=== PATIENT | male | born 1940 | race Caucasian/White ===

== ENCOUNTER 2017-10-05 18:10 | Inpatient (IN) | payer OTHER ==
[~2017-10-05] VITALS: Ht 162.6 cm; Wt 75.8 kg
--- NOTE | 2017-10-05 18:54 | CT SCAN REPORT ---
EXAMINATION: CT HEAD WITHOUT CONTRAST CLINICAL INFORMATION: Weakness. Intracranial hemorrhage/mass?. COMPARISON: None TECHNIQUE: Contiguous axial imaging was performed from the skull base to vertex without intravenous administration of contrast. DLP: 613 mGy-cm FINDINGS: There is no evidence of acute intracranial hemorrhage or territorial infarction. No abnormal mass effect or midline shift is seen. Luna to white matter differentiation is well preserved. No extra-axial fluid collections are identified. The lateral ventricles are enlarged and so are the cortical sulci. There is mild periventricular hypodensity suggestive of chronic small vessel ischemic changes. The osseous structures and soft tissues are normal. The mastoid air cells and visualized portions of the paranasal sinuses are well aerated. IMPRESSION: No acute intracranial process seen. Moderate dilatation of lateral ventricles slightly dys proportionate to cortical sulci. Raising question for NPH. Correlated with clinical exam. Mild chronic small vessel ischemic changes in both cerebral hemispheres.
--- NOTE | 2017-10-05 19:20 | RADIOLOGY REPORT ---
EXAMINATION: PORTABLE CHEST 1 VIEW CLINICAL INFORMATION: Weakness. COMPARISON: 07/02/2013. TECHNIQUE: Portable frontal view of the chest was obtained. FINDINGS: The lungs are well expanded. No focal infiltrate, effusion, edema, or pneumothorax. Cardiac and mediastinal silhouettes are within normal limits for technique. No acute bony abnormality seen. Degenerative changes seen in the shoulders and spine IMPRESSION: No evidence of acute disease.
--- NOTE | 2017-10-05 19:21 | RADIOLOGY REPORT ---
EXAMINATION: XR SHOULDER, LEFT CLINICAL INFORMATION: Left shoulder pain COMPARISON: None TECHNIQUE: 3 plain film views of the left shoulder obtained of the left shoulder. FINDINGS: Ureteral head is well-seated within the glenoid fossa. Degenerative changes are seen more so in the acromioclavicular joint. I do not appreciate any acute fracture or dislocation. Visualized left upper chest unremarkable. IMPRESSION: Mild degenerative changes but no acute bony abnormality.
[2017-10-05 19:55] LABS: ABSOLUTE BASOPHIL COUNT 0 /CUMM (0.0-0.2); ABSOLUTE EOSINOPHIL COUNT 0 /CUMM (0.0-0.7); ABSOLUTE GRANULOCYTE CT 8.3 /CUMM (1.4-6.5); ABSOLUTE LYMPH COUNT 0.5 /CUMM (1.2-3.4); BASOPHIL % 0.1 % (0.0-2.0); EOSINOPHIL % 0 % (0-5); MEAN CORPUSCULAR HGB 29.3 PG (27.0-31.0); MEAN CORPUSCULAR HGB CONC 33.9 G/DL (33.0-37.0); MEAN CORPUSCULAR VOLUME 86.4 FL (80.0-94.0); MEAN PLATELET VOLUME 8.9 FL (7.4-10.4); PLATELET COUNT 182 /CUMM (130-400); RBC DISTRIBUTION WIDTH 13.1 % (11.5-14.5); RED BLOOD CELL CT 4.05 /CUMM (4.70-6.10); WHITE BLOOD CELL COUNT 9.8 /CUMM (4.8-10.8)
[2017-10-05 19:58] LABS: GRANULOCYTE % 84.7 % (42.2-75.2)
--- NOTE | 2017-10-05 21:04 | ED GENERAL ADULT ---
History of Present Illness General Chief Complaint: General Adult Stated Complaint: BIBA FOR WEAKNESS Source: patient Exam Limitations: no limitations Vital Signs & Intake/Output Vital Signs & Intake/Output Vital Signs Date Time Temp Pulse Resp B/P B/P Pulse O2 O2 Flow FiO2 Mean Ox Delivery Rate 10/05 2028 98.3 109 18 179/99 97 Room Air 10/06 1831 98.4 109 18 189/104 95 Room Air Room Air Allergies Coded Allergies: NO KNOWN ALLERGIES (09/10/10) Reconcile Medications Gabapentin 300 MG CAPSULE 1 CAP PO TID NEUROPATHY (Reported) Lisinopril 5 MG TABLET 1 TAB PO DAILY HIGH BLOOD PRESSURE (Reported) Metformin HCl 1,000 MG TABLET 1 TAB PO BID DIABETES (Reported) Pregabalin (Lyrica) 75 MG CAPSULE 1 CAP PO BID NEUROPATHY (Reported) Simvastatin (Simvastatin*) 40 MG TABLET 1 TAB PO QPM HIGH CHOLESTROL ( Reported) Tramadol HCl 50 MG TABLET 1 TAB PO TIDPRN PAIN CONTROL (Reported) Triage Nurses Notes Reviewed? yes Onset: Abrupt Duration: week(s): (1), changing over time, continues in ED, getting worse Timing: recent history Injury Environment: home Severity: mild, moderate Severity Numbers: 6 No Modifying Factors: none Modifying Factors: Worsens With: movement. HPI: 76-year-old male history of hypertension hyperlipidemia diabetes presents for evaluation of difficulty walking, left shoulder pain, confusion, weakness and lethargy. Patient's son reports that over the past several months patient has had a decline in his ability to ambulate. Initially he was walking without difficulty then required a cane and a walker and now is unable to ambulate at all. He feels weak and reports pain in his left shoulder and arm. The pain is worse with movement there is no trauma or triggering event. Is feeling the upper extremity is swollen. No numbness or tingling. No chest pain or shortness of breath. The son also feels that the patient has been more confused recently. No fevers no urinary symptoms no coughing. (Tyler Ruffin) Past History Travel History Traveled to [place] past 21 day No Medical History Any Pertinent Medical History? see below for history History of MRSA: No History of VRE: No History of CDIFF: No Pneumonia Vaccine: 02/07/09 Surgical History Surgical History: non-contributory Psychosocial History Who do you live with Spouse Services at Home None What is your primary language Luxembourgish Family History Family History, If Any: Relation not specified for: No family history of disorders Hx Contributory? No (Tyler Ruffin) Review of Systems Review of Systems Constitutional: Reports: malaise, weakness. EENTM: Reports: no symptoms. Respiratory: Reports: no symptoms. Cardiovascular: Reports: no symptoms. GI: Reports: no symptoms. Genitourinary: Reports: no symptoms. Musculoskeletal: Reports: joint pain, joint swelling, muscle pain, muscle stiffness. Skin: Reports: no symptoms. Neurological/Psychological: Reports: see HPI, confusion. Hematologic/Endocrine: Reports: no symptoms. Immunologic/Allergic: Reports: no symptoms. All Other Systems: Reviewed and Negative (Tyler Ruffin) Physical Exam Physical Exam General Appearance: well developed/nourished, no apparent distress, alert, awake , lethargic Head: atraumatic, normal appearance Eyes: Bilateral: normal appearance, PERRL, EOMI. Ears, Nose, Throat: normal pharynx, normal ENT inspection, hearing grossly normal Neck: normal inspection, supple, full range of motion Respiratory: normal breath sounds, chest non-tender, no respiratory distress, lungs clear Cardiovascular: regular rate/rhythm, normal peripheral pulses Peripheral Pulses: 2+ radial (R), 2+ radial (L) Gastrointestinal: soft, non-tender Back: normal inspection, normal range of motion Extremities: there is tenderness to palpation diffusely in the left upper extremity particularly on the shoulder and wrist. Range of motion of the shoulder and wrist reduced due to pain. No erythema or bruising. Neurovascular supply is intact. No bony point tenderness Neurologic/Psych: no motor/sensory deficits, awake, alert, patient is alert and oriented to person and place only Skin: intact, normal color, warm/dry Core Measures ACS in differential dx? No CVA/TIA Diagnosis: No Sepsis Present: No Sepsis Focused Exam Completed? No (Tyler Ruffin) Progress Differential Diagnoses I considered the following diagnoses in my evaluation of the patient: [Sepsis, medication side effect, dementia, dehydration, electrolyte abnormality, ligament C, normal pressure hydrocephalus, acute coronary syndrome, osteoarthritis, DVT, fracture, dislocation, doubt] Plan of Care: Orders Procedure Date/time Status Heart Healthy Diet 10/06 B Active Intake & Output 10/06 2243 Active ED Holding Orders 10/05 2120 Active Admit to inpatient 10/05 2120 Active Vital Signs 10/05 2120 Active Code Status 10/05 2120 Active Patient Data 10/06 2111 Active URINALYSIS 10/05 1818 Active TROPONIN LEVEL 10/05 1818 Complete COMPREHENSIVE METABOLIC PANEL 10/05 1818 Complete CBC WITHOUT DIFFERENTIAL 10/05 1818 Complete EKG 10/05 1818 Active Laboratory Tests 10/05/17 1938: Anion Gap 9, Estimated GFR 59 L, BUN/Creatinine Ratio 25.8 H, Glucose 230 H, Calcium 9.2, Total Bilirubin 1.3, AST 27, ALT 34, Alkaline Phosphatase 84, Troponin I 0.02, Total Protein 6.6, Albumin 3.4 L, Globulin 3.2, Albumin/ Globulin Ratio 1.1, CBC w Diff NO MAN DIFF REQ, RBC 4.05 L, MCV 86.4, MCH 29.3, MCHC 33.9, RDW 13.1, MPV 8.9, Gran % 84.7 H, Lymphocytes % 5.0 L, Monocytes % 10.2 H, Eosinophils % 0, Basophils % 0.1, Absolute Granulocytes 8.3 H, Absolute Lymphocytes 0.5 L, Absolute Monocytes 1.0 H, Absolute Eosinophils 0, Absolute Basophils 0 Patient is here with weakness confusion difficulty walking and weakness. This is gradually been getting worse. Today the patient was unable to ambulate. On exam he is unable to get out of bed. The pain in the shoulder is severe with palpation and range of motion. Suspect muscular skeletal etiology. No recent trauma or lines to suggest DVT. Neurovascular supply is intact. Blood work and urinalysis head CT chest x-ray shoulder x-ray elbow and wrist x-rays ordered. Patient medicated with Tylenol. CT scan shows evidence of normal pressure hydrocephalus. Patient is having difficulty ambulating is been more confused than usual he is not having any urinary incontinence. He may have normal pressure hydrocephalus. X-rays are negative. Blood work is otherwise unremarkable. Patient will require admission to the hospital for further evaluation and treatment of normal pressure hydrocephalus and gait instability. He'll require neurology consult serial labs physical therapy case management medication adjustment case discussed with Dr. Carbajal he agrees Diagnostic Imaging: Viewed by Me: Radiology Read, CT Scan. Discussed w/RAD: Radiology Read, CT Scan. Radiology Impression: PATIENT: DENIS KINGSTON PRESENT AGE: 76 PATIENT ACCOUNT NO: [id number] : 39 LOCATION: [facility] ORDERING PHYSICIAN: Tyler CEDILLO SERVICE DATE: 10/05/17 EXAM TYPE: RAD - XRY-SHOULDER COMPLETE-LEFT EXAMINATION: XR SHOULDER, LEFT CLINICAL INFORMATION : Left shoulder pain COMPARISON: None TECHNIQUE: 3 plain film views of the left shoulder obtained of the left shoulder. FINDINGS: Ureteral head is well-seated within the glenoid fossa. Degenerative changes are seen more so in the acromioclavicular joint. I do not appreciate any acute fracture or dislocation. Visualized left upper chest unremarkable. IMPRESSION: Mild degenerative changes but no acute bony abnormality. DICTATED BY: Yury Ventura MD DATE/TIME DICTATED:10/05/171916 HUMAN RESOURCES PARTNER:GERMAN DATE/TIME TRANSCRIBED:1916 CONFIDENTIAL, DO NOT COPY WITHOUT APPROPRIATE AUTHORIZATION. < Electronically signed in Other Vendor System> SIGNED BY: Yury Ventura MD 10/05/171920, PATIENT: DENIS KINGSTON PRESENT AGE: 76 PATIENT ACCOUNT NO: [id number] : 39 LOCATION: [facility] ORDERING PHYSICIAN: Tyler CEDILLO SERVICE DATE: 10/05/17 EXAM TYPE: CAT - CT HEAD WO IV CONTRAST EXAMINATION: CT HEAD WITHOUT CONTRAST CLINICAL INFORMATION: Weakness. Intracranial hemorrhage/mass?. COMPARISON: None TECHNIQUE : Contiguous axial imaging was performed from the skull base to vertex without intravenous administration of contrast. DLP: 613 mGy-cm FINDINGS: There is no evidence of acute intracranial hemorrhage or territorial infarction. No abnormal mass effect or midline shift is seen. Luna to white matter differentiation is well preserved. No extra-axial fluid collections are identified. The lateral ventricles are enlarged and so are the cortical sulci. There is mild periventricular hypodensity suggestive of chronic small vessel ischemic changes. The osseous structures and soft tissues are normal. The mastoid air cells and visualized portions of the paranasal sinuses are well aerated. IMPRESSION: No acute intracranial process seen. Moderate dilatation of lateral ventricles slightly dys proportionate to cortical sulci. Raising question for NPH. Correlated with clinical exam. Mild chronic small vessel ischemic changes in both cerebral hemispheres. DICTATED BY: Amandeep Poon MD DATE/TIME DICTATED:10/05 HUMAN RESOURCES PARTNER:GERMAN DATE/TIME TRANSCRIBED:10/05/171846 CONFIDENTIAL, DO NOT COPY WITHOUT APPROPRIATE AUTHORIZATION. <Electronically signed in Other Vendor System> SIGNED BY: Amandeep Poon MD 10/05/171853 Initial ED EKG: normal sinus rhythm, LVH, no ST T wave changes (Tyler Ruffin) Departure Departure Disposition: STILL A PATIENT Condition: Stable Clinical Impression Primary Impression: Normal pressure hydrocephalus Referrals: Jose VELAZQUEZ,Palmer Jacinto (PCP/Family) Departure Forms: Customer Survey General Discharge Information Admission Note Spoke With: Radha Caceres MD Documentation of Exam: Documentation of any treatments & extenuating circumstances including Concerns Regarding Discharge (functional status, medication knowledge or non-compliance, living conditions, etc.) that warrant an admission rather than observation: [ Neurology consult, case management, lumbar puncture, serial labs, physical therapy] (Tyler Ruffin) PA/CONTROL CENTER OPERATOR Co-Sign Statement Statement: ED Attending supervision documentation- [X] I saw and evaluated the patient. I have also reviewed all the pertinent lab results and diagnostic results. I agree with the findings and the plan of care as documented in the PA's/CONTROL CENTER OPERATOR's documentation. [X] I have reviewed the ED Record and agree with the PA's/CONTROL CENTER OPERATOR's documentation. [] Additions or exceptions (if any) to the PAs/CONTROL CENTER OPERATOR's note and plan are summarized below: [PT HAS SYMPTOMS AND CT FINDINGS CONSISTENT WITH NPH. PT TO BE ADMITTED FOR NEURO CONSULT AND LP.] (Raven VELAZQUEZ,Db Tejada) Critical Care Note Critical Care Note Critical Care Time: non-applicable (Tyler Ruffin)
--- NOTE | 2017-10-05 21:10 | RADIOLOGY REPORT ---
EXAMINATION: LEFT ELBOW AND LEFT WRIST CLINICAL INFORMATION: Left elbow and left wrist pain and swelling. COMPARISON: None TECHNIQUE: Left wrist 4 views. Left elbow 4 views. FINDINGS: Left elbow: There is no visible acute fracture, dislocation or soft tissue abnormality. There is no evidence of joint effusion. The soft tissues are normal. Left wrist: There is no visible acute fracture or dislocation seen. There is loss of joint space with periarticular spurring first carpometacarpal joint. Calcification of héctor the fibrocartilage with hypertrophic bony changes radioulnar joint is noted. Mild dorsal wrist soft tissue swelling seen. IMPRESSION: No visible acute fracture or dislocation left elbow or left wrist. 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
[2017-10-05] MEDS ORDERED: SIMVASTATIN40 M1 PO (22:21)
[2017-10-05] MEDS ORDERED: LISINOPRIL5 M1 PO (22:21)
[2017-10-05] MEDS ORDERED: GABAPENTIN300 M2 PO (22:21)
[2017-10-05] MEDS ORDERED: METFORMIN HCL1000 M1 PO (22:22)
[2017-10-05] MEDS ORDERED: LYRICA75 M1 PO (22:22)
[2017-10-05] MEDS ORDERED: TRAMADOL HCL50 M1 PO (22:22)
--- NOTE | 2017-10-05 22:40 | History & Physical ---
Chris Elder 10/05/17 2240: General Information and HPI History of Present Illness: Pt is a 76 yo M with a PMH of DM2, HTN, HLD, gallstone pancreatitis s/p cholecystectomy, is brought in by his son for gait instability. Majority of the history were obtained from son as the patient did not want to provide details regarding his recent course. According to the son, he first noticed his dad's unstable gait about a year ago. After 2 or 3 months, the patient started having frequent falls and the instability proggressed to the point where he needed a cane and then a walker. Now the patient very easily loses balance and falls over and can barely ambulate. The son also mentions that he noticed some personality changes in his father regarding forgetfulness and becoming easility irritated over the past six months. This morning the son found the patient trying to get up from a chair but couldn' t do so. The patient feels weak. The patient kept repeating the same things, appeared confused, and disoriented, which brought about concern and the son decided to bring him to the hospital. The patient also reports pain in the left shoulder that he believes is attricbuted to him always sleeping on his left side. When asked about urinary symptoms, the patients mentions that he gets up 4 -5 times to urinate in the night, but denies any urinary incontinence. The patient denies any chest pain, palpitations, shortness of breath, cough, nausea, vomiting, diarrhea, or any tingling sensations in the extremities. The patient mentioned that he has been compliant with all of his medication regimens , but his son told later mentioned that the patient has poor compliance and follows a poor diet. Allergies/Medications Allergies: Coded Allergies: NO KNOWN ALLERGIES (NONE 10/06/17) Home Med list Gabapentin 300 MG CAPSULE 1 CAP PO TID NEUROPATHY (Reported) Lisinopril 5 MG TABLET 1 TAB PO DAILY HIGH BLOOD PRESSURE (Reported) Metformin HCl 1,000 MG TABLET 1 TAB PO BID DIABETES (Reported) Pregabalin (Lyrica) 75 MG CAPSULE 1 CAP PO BID NEUROPATHY (Reported) Simvastatin (Simvastatin*) 40 MG TABLET 1 TAB PO QPM HIGH CHOLESTROL ( Reported) Tramadol HCl 50 MG TABLET 1 TAB PO TIDPRN PAIN CONTROL (Reported) Past History Travel History Traveled to [place] past 21 day No Medical History History of MRSA: No History of VRE: No History of CDIFF: No Pneumonia Vaccine: 02/07/09 Surgical History Surgical History: non-contributory Past Family/Social History Family History Relations & Conditions if any Relation not specified for: No family history of disorders Psychosocial History Services at Home: None Review of Systems Review of Systems Constitutional: Reports: see HPI. EENTM: Reports: see HPI. Cardiovascular: Reports: see HPI. Respiratory: Reports: see HPI. GI: Reports: see HPI. Genitourinary: Reports: see HPI. Musculoskeletal: Reports: see HPI. Skin: Reports: see HPI. Neurological/Psychological: Reports: see HPI. Hematologic/Endocrine: Reports: see HPI. Immunologic/Allergic: Reports: see HPI. All Other Systems: Reviewed and Negative Exam & Diagnostic Data Last 24 Hrs of Vital Signs/I&O Vital Signs Date Time Temp Pulse Resp B/P B/P Pulse O2 O2 Flow FiO2 Mean Ox Delivery Rate 10/06 2251 101.0 10/06 2251 101.0 10/06 2204 102.2 10/06 2132 102.2 100 18 146/86 96 Room Air 10/06 1600 Room Air 10/06 1505 98.2 96 20 160/90 97 Room Air 10/06 1348 99.1 88 18 178/77 98 Room Air 10/06 0937 84 156/72 10/06 0904 84 16 156/72 97 Room Air 10/06 0607 98.9 93 18 189/90 97 Room Air Intake & Output 10/06 1600 10/06 0800 07 0000 Intake Total 240 Output Total Balance 240 Intake, Oral 240 Patient 167 lb 175 lb Weight Weight Reported by Patient Estimated Measurement Method Physical Exam General Appearance Alert, Cooperative, No Acute Distress Skin No Rashes Skin Temp/Moisture Exam: Warm/Dry Sepsis Skin Exam (color): Normal for Ethnicity HEENT Atraumatic, PERRLA, EOMI Neck Supple, No JVD Cardiovascular Regular Rate, Normal S1, Normal S2 Lungs Clear to Auscultation Abdomen Soft Neurological Unable to walk to test gait Extremities Left shoulder tenderness, decreased ROM, 2+ pitting edema BL LE Vascular Normal Pulses Last 24 Hrs of Labs/Michael: Laboratory Tests 10/06/17 0613: Anion Gap 12, Estimated GFR 54 L, BUN/Creatinine Ratio 23.1, Iron 19 L, TIBC 267, Ferritin 255.0, Creatine Kinase 65, Vitamin B12 < 159 L, Folate 14.8 10/06/17 0600: CBC w Diff Cancelled, WBC Cancelled, RBC Cancelled, Hgb Cancelled, Hct Cancelled , MCV Cancelled, MCH Cancelled, MCHC Cancelled, RDW Cancelled, Plt Count Cancelled, MPV Cancelled 10/06/17 0123: Urinalysis LIGHT H, Urine Color YEL, Urine Clarity CLEAR, Urine pH 6.5, Ur Specific [place] 1.025, Urine Protein >=300 H, Urine Ketones NEG, Urine Nitrite NEG, Urine Bilirubin NEG, Urine Urobilinogen 1.0, Ur Leukocyte Esterase NEG, Ur Microscopic SEDIMENT EXAMINED, Urine RBC 3-5, Urine WBC RARE, Urine Mucus FEW, Urine Hemoglobin SMALL H, Urine Glucose >=1000 H Microbiology 10/06 2213 BLOOD: Blood Culture - RECD 10/06 2202 BLOOD: Blood Culture - RECD Assessment/Plan Assessment: 1. Normal pressure hydrocephalus 2. Unable to ambulate dt gait instability 3. Injury of the left shoulder Plan - Admit to Gen med - Neurology consult (possible lumbar puncture) - PT eval (check gait and left shoulder) - DVT PPx - Accucheks and Novolog scale - Diabetic and salt restricted diet - Full code As Ranked By This Provider Problem List: 1. Normal pressure hydrocephalus 2. B12 deficiency 3. Full code status Core Measures/Misc (12/14) Acute Coronary Syndrome ACS Diagnosis: No Congestive Heart Failure Congestive Heart Failure Diagnosis No Cerebrovascular Accident CVA/TIA Diagnosis: No VTE (View Protocol) VTE Risk Factors Age>40 No Mechanical VTE Prophylaxis d/t N/A MechProphylax Ordered No VTE Pharm Prophylaxis d/t NA PharmProphylax ordered Sepsis (View protocol) Sepsis Present: No If YES complete Sepsis Event Note If YES complete Sepsis Event Note Shanta VELAZQUEZ,[facility] 10/05/17 2241: Exam & Diagnostic Data Last 24 Hrs of Vital Signs/I&O Vital Signs Date Time Temp Pulse Resp B/P B/P Pulse O2 O2 Flow FiO2 Mean Ox Delivery Rate 10/06 1600 Room Air 10/06 1505 98.2 96 20 160/90 97 Room Air 10/06 1348 99.1 88 18 178/77 98 Room Air 10/06 0937 84 156/72 10/06 0904 84 16 156/72 97 Room Air 10/06 0607 98.9 93 18 189/90 97 Room Air 10/05 2028 98.3 109 18 179/99 97 Room Air Intake & Output 10/06 1600 10/06 0800 10/06 0000 Intake Total 240 Output Total Balance 240 Intake, Oral 240 Patient 167 lb 175 lb Weight Weight Reported by Patient Estimated Measurement Method Core Measures/Misc (12/14) Sepsis (View protocol) If YES complete Sepsis Event Note If YES complete Sepsis Event Note Resident Review Statement Resident Statement: examined this patient, discussed with public health internship, agreed with public health internship, reviewed EMR data (avail), reviewed images Other Findings: Mr Bagley is a 76 y/o gentleman with PMH of DM2, HTN, HLD, GALLSTONES Pancreatitis s/p cholecystectomy is brought in by his son because of gait instability. Prednisone, patient has been having unstable gait and falling frequently for almost a year now. Reports almost up with falls for the past 10 months. He was using a cane to ambulate and was later told to use a walker by his PCP. He has also been having issues with getting up from a lying or sitting position. This morning patient was trying to get up from the chair but was unable to do so and also appeared confused, he continued to ask the same question again and again which got him concerned and the son brought him to the hospital. Patient denies any weakness. Son Also Mentioned that he has been more agitated for the past couple of months and loses temper on minor things. He also reports left shoulder and wrist pain for the past 1 week, pain is aggravated with certain movements. He thinks that he sleeps mostly on the left side which is the reason for his shoulder and wrist pain. Denies any chest pain, palpitations, cough, sputum production, difficulty breathing, abdominal pain, nausea, vomiting, diarrhea/constipation or pain/ burning with urination. Does mention urinary frequency and has to get up 4-5 times at night to pee. Denies any incontinence. Son also mentions poor compliance with his medications and also poor dietary habits, he wants to be contacted in case of any questions or updates as the patient does not provide correct information regarding his medication/dietary compliance. Vitals on admission were Temp 98.4, HR 109, RR 18, BP 189/104 and O2 sats 95% on Room Air. WBC count of 9.8, H&H 11.9/35, Plt Count 182, Na 135, k 4.4, Cl 94, BUN/ Creatinine Ratio 25.8 H, Glucose 230 H, normal LFTs and negative troponin. Head CT showed Moderate dilatation of lateral ventricles slightly dys proportionate to cortical sulci. Raising question for NPH. CXR, Left Shoulder, elbow and wrist Xray negative for any acute pathology. Problem list; 1. Normal pressure hydrocephalus; presenting with ataxia and gait abnormalities 2. Left shoulder and wrist pain; secondary to osteoarthritis 3. History of diabetes, hypertension and hyperlipidemia with poor medication compliance - Admit the patient to general medicine floor - Likely will need a LP - Neurology consult - PT Eval - Pain managment for left shoulder and wrist - Novolog sliding scale and Accu-Cheks - Continue rest at home medication DVT prophylaxis; Alps and subcutaneous Lovenox Patient is full code Radha Caceres MD 10/05/17 2307: Core Measures/Misc (12/14) Sepsis (View protocol) If YES complete Sepsis Event Note If YES complete Sepsis Event Note Attending MD Review Statement Attending Statement Attending MD Statement: examined this patient, discuss w/resident/PA/HOSTESS, agreed w/resident/PA/HOSTESS, reviewed EMR data (avail) Attending Assessment/Plan: 76M PMH HTN, HLD, T2DM presenting with a several month history of general deterioration with difficulty walking and episodes of confusion. Patient reports that he used to walk with a cane months ago, then used a walker, now he is unable to walk. He reports that he very easily loses his balance and falls over. He denies weakness and reports that he feels strong, and this is reflected in his physical exam. He is alert and coherent with me, but has brief episodes of tangential thinking and general neglect. His neuro exam is normal. CT head shows evidence of normal pressure hydrocephalus. Labs reviewed. He complains of chronic left shoulder pain, with imaging showing osteoarthritis. 1. Normal pressure hydrocephalus 2. Unable to ambulate 3. Ataxia 4. Osteoarthritis of the left shoulder Plan - Admit to general medicine - Neurology consult - PT eval - Continue home medications - DVT PPx
--- NOTE | 2017-10-05 23:12 | Admission Certification ---
Admission Certification Certification Statement - As attending physician, I certify that at the time of - admission, based on clinical presentation, severity of - symptoms, need for further diagnostic testing and - therapeutic interventions, and risk of adverse outcomes - without in-hospital treatment, in my clinical assessment, - this patient requires an acute hospital stay for a minimum - of two nights or longer. I have also considered psychsocial - factors such as support system, advanced age, financial - issues, cognitive issues, and failed out-patient treatments, - past re-admission history, safety of patient, and lack of - compliance as applicable. Specific rationale supporting this admission is: normal pressure hydrocephalus with frequent falls and inability to ambulate
--- NOTE | 2017-10-06 09:09 | PN- Housestaff ---
See Addendum Subjective Follow-up For: gait instability and multiple falls Complaints: no complaints Subjective: Patient states he feels alright currently and is awaiting a bed upstairs on inpatient services. His son is at bedside and relayed that his father has been declining over the past 10 months and came to the ED when he could no longer lift himself out of a chair. Family members were unable to assist him safely as the patient has chronic pain in left shoulder. Denies fever, chills, n/v/d, chest pain, SOB, abdominal pain. Review of Systems Constitutional: Reports: see HPI. Objective Last 24 Hrs of Vital Signs/I&O Vital Signs Date Time Temp Pulse Resp B/P B/P Pulse O2 O2 Flow FiO2 Mean Ox Delivery Rate 10/06 1348 99.1 88 18 178/77 98 Room Air 10/06 0937 84 156/72 10/06 0904 84 16 156/72 97 Room Air 10/06 0607 98.9 93 18 189/90 97 Room Air 10/05 2029 98.3 109 18 179/99 97 Room Air 10/05 1832 98.4 109 18 189/104 95 Room Air Room Air Intake & Output 10/06 1600 10/06 0800 10/06 0000 Intake Total 240 Output Total Balance 240 Intake, Oral 240 Patient 175 lb Weight Weight Estimated Measurement Method Physical Exam General Appearance: Alert, Oriented X3, Cooperative, No Acute Distress Skin: No Rashes Skin Temp/Moisture Exam: Warm/Dry HEENT: Atraumatic, PERRLA Neck: Supple Cardiovascular: Regular Rate, systolic murmur Lungs: Clear to Auscultation Abdomen: Normal Bowel Sounds, Soft, No Tenderness Neurological: Normal Tone, Sensation Intact Extremities: edema to bilateral lower extremities to just below the knee Assessment/Plan Assessment: Pt is a 76 yo M with a PMH of DM2, HTN, HLD, gallstone pancreatitis s/p cholecystectomy brought in by his son for gait instability and weakness. CT head found: Moderate dilatation of lateral ventricles slightly dys proportionate to cortical sulci. Raising question for NPH. Patient admitted to general medicine services for treatment of the following: Problem List: 1. Weakness/gait instability #Weakness/gain instability-may be 2/2 Normal Pressure Hydrocephalus as per CT head imaging and clincal picture of incontinence/ataxia. Patient seems to be mentating well and this does not quite fit the picture of NPH. Other possible causes include dehydration or malnutrition. Patient admitting labs show low iron and B12 levels-this can all contribute to weakness -Neurology Consult: awaiting recs -If NPH is the likely source of sx; will need LP for dx and tx -IV fluids LR @125cc/hr for hydration -Replete iron and B12 and continue to monitor #Chronic medical issues -continue home medications DVT prophylaxis: lovenox/ALPS/ambulation with assistance Problem List: 1. Normal pressure hydrocephalus 2. PÉREZ (acute kidney injury) 3. Iron deficiency anemia 4. B12 deficiency Pain Ratin Pain Location: none Pain Goal: Remain pain free Pain Plan: see a/p Tomorrow's Labs & Rationales: bep
[2017-10-06 15:05] VITALS: BP 160/90
--- NOTE | 2017-10-06 16:20 | Cons- Neurology ---
General Information and HPI Consulting Request Date of Consult: 10/06/17 Requested By: Colton Nieves MD Reason for Consult: Evaluation for normal pressure hydrocephalus Source of Information: patient, old records, Resident MDs Exam Limitations: dementia History of Present Illness: 76 year old man with a 1 year gradual decline was brought into the ER by his son when he was unable to arise from a chair yesterday. According to the medical record the son first noticed his dad's unstable gait about a year ago. After 2 or 3 months, the patient started having frequent falls and the instability proggressed to the point where he needed a cane and then a walker The son also mentions that he noticed some personality changes in his father regarding forgetfulness and becoming easility irritated over the past six months. The patient mentioned that he gets up 4-5 times to urinate in the night, but denies any urinary incontinence. Peripheral neuropathy treated with gabapentin 300 mg 3 times daily and and Lyrica 75 mg twice daily, also taking tramadol 3 times daily as needed for pain Evaluation so far reveals a serum B12 level less than 159, anemia with hemoglobin 11.9, low iron at 19 with normal TIBC and ferritin, normal folate. Thyroid function has not been checked Allergies/Medications Allergies: Coded Allergies: NO KNOWN ALLERGIES (NONE 10/06/17) Home Med List: Gabapentin 300 MG CAPSULE 1 CAP PO TID NEUROPATHY (Reported) Lisinopril 5 MG TABLET 1 TAB PO DAILY HIGH BLOOD PRESSURE (Reported) Metformin HCl 1,000 MG TABLET 1 TAB PO BID DIABETES (Reported) Pregabalin (Lyrica) 75 MG CAPSULE 1 CAP PO BID NEUROPATHY (Reported) Simvastatin (Simvastatin*) 40 MG TABLET 1 TAB PO QPM HIGH CHOLESTROL ( Reported) Tramadol HCl 50 MG TABLET 1 TAB PO TIDPRN PAIN CONTROL (Reported) Current Medications: Current Medications Sig/Cheri Start time Last Medication Dose Route Stop Time Status Admin Acetaminophen 0 .STK-MED ONE 10/06 622 DC PO Acetaminophen 650 MG Q6P PRN 10/06 99 AC PO Acetaminophen 0 .STK-MED ONE 10/05 1934 DC PO Acetaminophen 975 MG ONCE ONE 10/05 1929 DC 10/05 PO 10/05 1930 194 Amlodipine Besylate 0 .STK-MED ONE 10/06 928 DC PO Amlodipine Besylate 5 MG DAILY 10/06 899 AC 10/06 PO 0937 Atorvastatin Calcium 20 MG 1700 10/06 1700 CAN PO Cyanocobalamin 1,000 MCG DAILY 10/06 1445 AC IM 10/12 0901 Enoxaparin Sodium 0 .STK-MED ONE 10/06 09 DC SC Enoxaparin Sodium 40 MG DAILY 10/06 09 AC 10/06 SC 0937 Ferrous Sulfate 325 MG DAILY 10/06 1445 AC PO Gabapentin 0 .STK-MED ONE 10/06 1413 DC PO Gabapentin 0 .STK-MED ONE 10/06 0929 DC PO Gabapentin 300 MG TID 10/06 899 AC 10/06 PO 1414 Insulin Aspart 0 TIDAC 10/06 08 DC SC Insulin Aspart 0 TIDAC/HS 10/06 08 AC 10/06 SC 1147 Insulin Aspart 3 UNITS ONCE ONE 10/06 0200 DC 10/06 SC 10/06 0201 0207 Lactated Ringer's 1,000 ML Q8H 10/06 0745 AC 10/06 IV 0903 Lisinopril 5 MG DAILY 10/06 899 CAN PO Pregabalin 75 MG BID 10/06 899 AC 10/06 PO 0937 Review of Systems Review of Systems: The patient denies headache, neck or low back pain. He admits to poor memory and some numbness in the hands. Other systems on the complete medical ROS negative. Past History Travel History Traveled to [place] past 21 day No Medical History Neurological: peripheral neuropathy EENT: hearing loss Cardiovascular: hypertension, hyperlipidemia Respiratory: NONE Gastrointestinal: NONE Hepatic: NONE Renal: NONE Musculoskeletal: ARTHRITIS Psychiatric: NONE Endocrine: diabetes Blood Disorders: NONE Cancer(s): NONE DIRECTOR OF ENGINEERING/Reproductive: NONE Surgical History Surgical History: non-contributory Family History Relations & Conditions If Any: Relation not specified for: No family history of disorders Psychosocial History Where Do You Live? Home Services at Home: None Smoking Status: Former Smoker ETOH Use: denies use Illicit Drug Use: denies illicit drug use Exam & Diagnostic Data Vital Signs and I&O Vital Signs Date Time Temp Pulse Resp B/P B/P Pulse O2 O2 Flow FiO2 Mean Ox Delivery Rate 10/06 1505 98.2 96 20 160/90 97 Room Air 10/06 1348 99.1 88 18 178/77 98 Room Air 10/06 09 84 156/72 10/06 0904 84 16 156/72 97 Room Air 10/06 0607 98.9 93 18 189/90 97 Room Air 10/05 2028 98.3 109 18 179/99 97 Room Air 10/05 1832 98.4 109 18 189/104 95 Room Air Room Air Intake & Output 10/06 1600 10/06 0800 10/06 0000 Intake Total 240 Output Total Balance 240 Intake, Oral 240 Patient 167 lb 175 lb Weight Weight Reported by Patient Estimated Measurement Method CT scan of the head without contrast 10/05/17: No acute intracranial process seen. Moderate dilatation of lateral ventricles slightly dys proportionate to cortical sulci. Raising question for NPH. Correlated with clinical exam. Mild chronic small vessel ischemic changes in both cerebral hemispheres. Physical Exam: Appears chronically ill neck supple, no bruits no murmur, no edema, periph pulses intact awake oriented to GH, name, not month or year Immediate recall /, stm at 1 min 04/01 named only one of recent 4 presidents no language errors, mild dysarthria EOMI including upgaze, without nystagmus [id number] face symmetric, lower CN normal Motor: antalgic weakness LUE (frozen shoulder) edge kitter OK Right UE 4+/5 BLE4/5 DTRs hypoactive, plantars downgoing Coord: tremor/ataxia BUE. difficulty taking and eating a cookie gait not tested sensory - unreliable responses Last 48 Hours of Lab Results: Laboratory Tests 10/06 10/06 10/06 0613 0600 0123 Chemistry Sodium (137 - 145 mmol/L) 137 Potassium (3.5 - 5.1 mmol/L) 4.3 Chloride (98 - 107 mmol/L) 100 Carbon Dioxide (22 - 30 mmol/L) 26 Anion Gap (5 - 16) 12 BUN (9 - 20 mg/dL) 30 H Creatinine (0.7 - 1.2 mg/dL) 1.3 H Estimated GFR (>60 ml/min) 54 L BUN/Creatinine Ratio (7 - 25 %) 23.1 Iron (49 - 181 ug/dL) 19 L TIBC (261 - 462 ug/dL) 267 Ferritin (17.9 - 464 ng/mL) 255.0 Creatine Kinase (55 - 170 U/L) 65 Vitamin B12 (239 - 931 pg/mL) < 159 L Folate (2.76 - 20.0 ng/mL) 14.8 Hematology CBC w Diff Cancelled WBC Cancelled RBC Cancelled Hgb Cancelled Hct Cancelled MCV Cancelled MCH Cancelled MCHC Cancelled RDW Cancelled Plt Count Cancelled MPV Cancelled Urines Urinalysis LIGHT H Urine Color (YEL,AMB,STR) YEL Urine Clarity (CLEAR) CLEAR Urine pH (5.0 - 8.0) 6.5 Ur Specific [place] (1.001 - 1.035) 1.025 Urine Protein (NEG,<30 MG/DL) >=300 H Urine Ketones (NEG) NEG Urine Nitrite (NEG) NEG Urine Bilirubin (NEG) NEG Urine Urobilinogen (0.1 - 1.0 EU/dl) 1.0 Ur Leukocyte Esterase (NEG) NEG Ur Microscopic SEDIMENT EXAMINED Urine RBC (0 - 5 /HPF) 3-5 Urine WBC (0 - 2 /HPF) RARE Urine Mucus (FEW,NONE) FEW Urine Hemoglobin (NEG) SMALL H Urine Glucose (N MG/DL) >=1000 H 10/05 1938 Chemistry Sodium (137 - 145 mmol/L) 135 L Potassium (3.5 - 5.1 mmol/L) 4.4 Chloride (98 - 107 mmol/L) 97 L Carbon Dioxide (22 - 30 mmol/L) 29 Anion Gap (5 - 16) 9 BUN (9 - 20 mg/dL) 31 H Creatinine (0.7 - 1.2 mg/dL) 1.2 Estimated GFR (>60 ml/min) 59 L BUN/Creatinine Ratio (7 - 25 %) 25.8 H Glucose (65 - 99 mg/dL) 230 H Calcium (8.4 - 10.2 mg/dL) 9.2 Total Bilirubin (0.2 - 1.3 mg/dL) 1.3 AST (17 - 59 U/L) 27 ALT (21 - 72 U/L) 34 Alkaline Phosphatase (< 127 U/L) 84 Troponin I (<0.11 ng/ml) 0.02 Total Protein (6.3 - 8.2 g/dL) 6.6 Albumin (3.5 - 5.0 g/dL) 3.4 L Globulin (1.9 - 4.2 gm/dL) 3.2 Albumin/Globulin Ratio (1.1 - 2.2 %) 1.1 Hematology CBC w Diff NO MAN DIFF REQ WBC (4.8 - 10.8 /CUMM) 9.8 RBC (4.70 - 6.10 /CUMM) 4.05 L Hgb (14.0 - 18.0 G/DL) 11.9 L Hct (42 - 52 %) 35.0 L MCV (80.0 - 94.0 FL) 86.4 MCH (27.0 - 31.0 PG) 29.3 MCHC (33.0 - 37.0 G/DL) 33.9 RDW (11.5 - 14.5 %) 13.1 Plt Count (130 - 400 /CUMM) 182 MPV (7.4 - 10.4 FL) 8.9 Gran % (42.2 - 75.2 %) 84.7 H Lymphocytes % (20.5 - 51.1 %) 5.0 L Monocytes % (1.7 - 9.3 %) 10.2 H Eosinophils % (0 - 5 %) 0 Basophils % (0.0 - 2.0 %) 0.1 Absolute Granulocytes (1.4 - 6.5 /CUMM) 8.3 H Absolute Lymphocytes (1.2 - 3.4 /CUMM) 0.5 L Absolute Monocytes (0.10 - 0.60 /CUMM) 1.0 H Absolute Eosinophils (0.0 - 0.7 /CUMM) 0 Absolute Basophils (0.0 - 0.2 /CUMM) 0 Imaging/Other Studies: CT head: No acute intracranial process seen. Moderate dilatation of lateral ventricles slightly dys proportionate to cortical sulci. Raising question for NPH. Correlated with clinical exam. Mild chronic small vessel ischemic changes in both cerebral hemispheres. Assessment/Plan Assessment: Abnormal mental status, dementia gait disorder, falls I believe the patient's neurologic abnormalities more likely result from B12 deficiency than from normal pressure hydrocephalus. On my review of the scan the ventricles are indeed large but cortical sulci are quite large also and there is no indication of periventricular edema, arguing against NPH Recommendations: B12 1000 MCG IM daily for 7 days and then weekly Physical therapy consultation Nutritional consult cannot evaluate reliably for NPH (high volume LP with timed walk) in current condition Consult Acknowledgment - Thank you for your consult request.
[2017-10-06 21:32] VITALS: BP 146/86
[2017-10-07 06:14] VITALS: BP 130/90
--- NOTE | 2017-10-07 07:37 | PN- Housestaff ---
See Addendum Subjective Follow-up For: ATAXIA WEAKNESS Complaints: COMPLAINS OF LEFT ARM/WRIST/HAND/FINGER PAIN Subjective: Patient states he did not sleep well last night and at one point forgot where he was when he woke up. He started to cry when he relayed this. He states he has terrible pain in his LUE even with the lightest touch. He denies fever, chills, n/v/d, chest pain, SOB. He states he does not recall any history of tick bites or rashes. Review of Systems Constitutional: Reports: see HPI. Objective Last 24 Hrs of Vital Signs/I&O Vital Signs Date Time Temp Pulse Resp B/P B/P Pulse O2 O2 Flow FiO2 Mean Ox Delivery Rate 10/07 0614 98.5 91 20 130/90 99 Room Air 10/06 2319 98.8 10/06 2251 101.0 10/06 2251 101.0 10/06 2204 102.2 10/06 2132 102.2 100 18 146/86 96 Room Air 10/06 1600 Room Air 10/06 1505 98.2 96 20 160/90 97 Room Air 10/06 1348 99.1 88 18 178/77 98 Room Air 10/06 0937 84 156/72 10/06 0904 84 16 156/72 97 Room Air Intake & Output 10/07 0800 10/07 0000 10/06 1600 Intake Total 1000 1315 Output Total Balance 1000 1315 Intake, IV 1000 875 Intake, Oral 440 Patient 167 lb Weight Weight Reported by Patient Measurement Method Physical Exam General Appearance: Alert, Oriented X3, Cooperative, Mild Distress Skin: erythema/warmth/swelling to LUE. Skin Temp/Moisture Exam: Warm/Dry HEENT: Atraumatic, PERRLA Neck: Supple Cardiovascular: Regular Rate, systolic murmur Lungs: Clear to Auscultation Abdomen: Normal Bowel Sounds, Soft, No Tenderness Extremities: decreased range of motion 2/2 pain and stiffness LUE. Tenderness to palpation LUE and LLE. see skin exam for findings Assessment/Plan Assessment: Pt is a 76 yo M with a PMH of DM2, HTN, HLD, gallstone pancreatitis s/p cholecystectomy brought in by his son for gait instability and weakness. CT head found: Moderate dilatation of lateral ventricles slightly dys proportionate to cortical sulci. Raising question for NPH. Patient admitted to general medicine services for treatment of the following: Problem List: 1. Weakness/gait instability #Weakness/gain instability-may be 2/2 Normal Pressure Hydrocephalus as per CT head imaging and clincal picture of incontinence/ataxia. Patient seems to be mentating well and this does not quite fit the picture of NPH. Other possible causes include dehydration or malnutrition. Patient admitting labs show low iron and B12 levels-this can all contribute to weakness -Neurology Consult: feel sx more likely attributed to B12 deficiency rather than NPH. Recommend replacement and nutrition consult. -Replete iron and B12 and continue to monitor -PT recs: Short term rehab -Follow up labs: Albumin/protein, Vit D, cbc #Left upper extremity pain and decreased range of motion-possibly infectious vs gout vs complex regional pain syndrome -OT Eval -Will order uric acid level; sed rate -Start Celecoxib for pain #PÉREZ-resolved (Cr 1.3 on 10/06) -IV fluid hydration-discontinued #Chronic medical issues -continue home medications DVT prophylaxis: lovenox/ALPS/ambulation with assistance Problem List: 1. PÉREZ (acute kidney injury) 2. B12 deficiency 3. Iron deficiency anemia 4. Ataxia Pain Ratin Pain Location: LUE/ LLE Pain Goal: Pain 4 or less Pain Plan: see a/p Tomorrow's Labs & Rationales: bep
--- NOTE | 2017-10-07 13:56 | Discharge Summary ---
See Addendum Visit Information Visit Dates Admission Date: 10/05/17 Discharge Date: 10/08/17 Hospital Course Course Attending Physician: Colton Nieves MD Primary Care Physician: Palmer Garcia MD Hospital Course: Mr Bagley is a 76 yo M with a PMH of DM2, HTN, HLD, gallstone pancreatitis s /p cholecystectomy brought in by his son for gait instability and weakness found to be secondary to vitamin B12 deficiency. Problem List: 1. Vitamin B12 deficiency with neurological symptoms 2. Iron deficiency anemia 3. Vitamin D deficiency 4. Acute kidney injury Admission Data: Vitals: Temp 98.4, HR 109, RR 18, BP 189/104 and O2 sats 95% on Room Air. WBC count of 9.8, H&H 11.9/35, Plt Count 182, Na 135, k 4.4, Cl 94, BUN/ Creatinine Ratio 25.8 H, Glucose 230 H, normal LFTs and negative troponin. Head CT showed Moderate dilatation of lateral ventricles slightly dys proportionate to cortical sulci. Raising question for NPH. CXR, Left Shoulder, elbow and wrist Xray negative for any acute pathology. #Vitamin B12 deficiency with neurological symptoms: Patient presented with gait instability and multiple falls found to have vitamin B12 deficiency as well as iron and vitamin D deficiency. CT scan showed questionable NPH signs but given the vitamin B12 deficiency it is more likely that his symptoms are due to this. Neurology was consulted and agrees. He was placed on daily vitamin B12 injections and to continue this for a total of 7 days and then have weekly injections. Nutrition evaluated and educated the patient on ways to improve his diet. Anti-intrinsic factor antibody was also sent and is pending. He should follow-up with primary care. PT and OT also evaluated and recommended short- term rehab. #PÉREZ- with Cr 1.3 on admission that resolved with IVF hydration. Likely prerenal azotemia in the setting of poor p.o. intake. #Chronic medical problems: His statin was held in the setting of ataxia. We continued other home medications and he can restart his statin now. Allergies: Coded Allergies: NO KNOWN ALLERGIES (NONE 10/06/17) Disposition Summary Disposition Principal Diagnosis: 1. Vitamin B12 deficiency with neurological symptoms Additional Diagnosis: 2. Iron deficiency anemia 3. Vitamin D deficiency 4. Acute kidney injury Discharge Disposition: SNF Discharge Instructions General Discharge Information Code Status: Full Code Patient's Diet: Regular diet per nutrition Patient's Activity: As tolerated Follow-Up Instructions/Appts: Please take all medications as directed. Please follow-up with primary care. Medications at Discharge Discharge Medications: Continue taking these medications: Lisinopril (Lisinopril) 5 MG TABLET 1 Tablet ORAL DAILY Comments: NOT GIVEN Simvastatin (Simvastatin*) 40 MG TABLET 1 Tablet ORAL Every night Comments: NOT GIVEN Gabapentin (Gabapentin) 300 MG CAPSULE 1 Capsule ORAL THREE TIMES DAILY Comments: Last Taken:10/08/17 Time:2AM Metformin HCl (Metformin HCl) 1,000 MG TABLET 1 Tablet ORAL TWICE DAILY Comments: NOT GIVEN Tramadol HCl (Tramadol HCl) 50 MG TABLET 1 Tablet ORAL THREE TIMES A DAY NEEDED Comments: NOT GIVEN Pregabalin (Lyrica) 75 MG CAPSULE 1 Capsule ORAL TWICE DAILY Comments: Last Taken:10/08/17 Time:9AM Start taking the following new medications: Ferrous Sulfate (Ferrous Sulfate) 325 MG (65 MG IRON) TABLET.DR 325 Milligram ORAL DAILY Qty = 30 No Refills Comments: Last Taken:10/08/17 Time:9AM Cyanocobalamin (Vitamin B-12) (Cyanocobalamin Injection) 1,000 MCG/ML VIAL 1,000 Microgram INTRAMUSC DAILY Qty = 20 No Refills Instructions: Please take daily until 10/11/17, then weekly. Comments: Last Taken:10/08/17 Time:9AM Cholecalciferol (Vitamin D3) 1,000 UNIT TABLET 2,000 International Unit ORAL DAILY Qty = 30 No Refills Comments: Last Taken:10/08/17 Time:9AM Copies To: Jose VELAZQUEZ,Palmer Jacinto Attending MD Review Statement Documenting Attending: Colton Nieves MD Other Findings: The patient was seen and discussed with house staff. OK to discharge to [facility] today. Continue B12 injections.
[2017-10-07 14:46] LABS: ABSOLUTE BASOPHIL COUNT 0 /CUMM (0.0-0.2); ABSOLUTE EOSINOPHIL COUNT 0.1 /CUMM (0.0-0.7); ABSOLUTE GRANULOCYTE CT 7.2 /CUMM (1.4-6.5); ABSOLUTE LYMPH COUNT 0.5 /CUMM (1.2-3.4); ABSOLUTE MONOCYTE COUNT 0.8 /CUMM (0.10-0.60); BASOPHIL % 0.4 % (0.0-2.0); EOSINOPHIL % 0.6 % (0-5); GRANULOCYTE % 83.6 % (42.2-75.2); HEMATOCRIT 30.7 % (42-52); MEAN CORPUSCULAR HGB 29.3 PG (27.0-31.0); MEAN CORPUSCULAR HGB CONC 34.1 G/DL (33.0-37.0); MEAN CORPUSCULAR VOLUME 85.8 FL (80.0-94.0); MEAN PLATELET VOLUME 9.8 FL (7.4-10.4); PLATELET COUNT 158 /CUMM (130-400); RBC DISTRIBUTION WIDTH 13.2 % (11.5-14.5); RED BLOOD CELL CT 3.58 /CUMM (4.70-6.10); WHITE BLOOD CELL COUNT 8.6 /CUMM (4.8-10.8)
[2017-10-07 15:13] VITALS: BP 110/78
[2017-10-07 15:18] VITALS: BP 110/78
[2017-10-07 21:54] VITALS: BP 140/70
[2017-10-08 06:41] VITALS: BP 136/82
[2017-10-08] MEDS ORDERED: FERROUS SULFAT325 M2 PO (08:26)
[2017-10-08] MEDS ORDERED: CYANOCOBAL1000 MCG/2 IM (08:26)
--- NOTE | 2017-10-08 08:28 | PN- Housestaff ---
See Addendum Subjective Follow-up For: ataxia and weakness Complaints: no complaints Subjective: Patient reports one episode of urinary incontinence overnight. He feels much improved and was excited to show me how well he can move his left arm now. He states the pain has significantly decreased and he has better range of motion. He is aware PT has recommended STR and is okay with that. His sons will be here today to help him decide which STR he would prefer. Denies fever, chills, n/v/d , chest pain, SOB, abdominal pain. Review of Systems Constitutional: Reports: see HPI. Objective Last 24 Hrs of Vital Signs/I&O Vital Signs Date Time Temp Pulse Resp B/P B/P Pulse O2 O2 Flow FiO2 Mean Ox Delivery Rate 10/08 0641 97.5 95 20 136/82 97 Room Air 10/07 2154 98.7 81 20 140/70 96 10/07 1518 99.3 89 20 110/78 98 Room Air Intake & Output 10/08 1600 10/08 0800 10/08 0000 Intake Total 200 450 Output Total Balance 200 450 Intake, Oral 200 450 Physical Exam General Appearance: Alert, Oriented X3, Cooperative, No Acute Distress Skin: still has some warmth and erythema over dorsal aspect of left wrist Skin Temp/Moisture Exam: Warm/Dry HEENT: Atraumatic, PERRLA Neck: Supple Cardiovascular: Regular Rate, systolic murmur Lungs: Clear to Auscultation Abdomen: Normal Bowel Sounds, Soft, No Tenderness Neurological: Normal Tone, Sensation Intact Extremities: improved range of motion LUE Assessment/Plan Assessment: Pt is a 76 yo M with a PMH of DM2, HTN, HLD, gallstone pancreatitis s/p cholecystectomy brought in by his son for gait instability and weakness. CT head found: Moderate dilatation of lateral ventricles slightly dys proportionate to cortical sulci. Raising question for NPH. Patient admitted to general medicine services for treatment of the following: Problem List: 1. Weakness/gait instability #Weakness/gain instability-may be 2/2 Normal Pressure Hydrocephalus as per CT head imaging and clincal picture of incontinence/ataxia. Patient seems to be mentating well and this does not quite fit the picture of NPH. Other possible causes include dehydration or malnutrition. Patient admitting labs show low iron and B12 levels-this can all contribute to weakness -Neurology Consult: feel sx more likely attributed to B12 deficiency rather than NPH. Recommend replacement and nutrition consult. -B12 and Vit D supplementation -PT recs: Short term rehab -Nutrition consult: gave diet recs to patient #Left upper extremity pain and decreased range of motion-possibly infectious vs gout vs complex regional pain syndrome vs 2/2 B12 deficiency -OT Eval: patient education for ADLs -uric acid normal -Celecoxib for pain -Improving with B12 IM supplementation #PÉREZ-resolved (Cr 1.3 on 10/06) -IV fluid hydration-discontinued #Chronic medical issues -continue home medications DVT prophylaxis: lovenox/ALPS/ambulation with assistance Dispo: likely d/c to STR today. Working with case management and patient's sons Problem List: 1. B12 deficiency 2. Iron deficiency anemia 3. Ataxia Pain Ratin Pain Location: none Pain Goal: Remain pain free Pain Plan: see a/p Tomorrow's Labs & Rationales: none
--- NOTE | 2017-10-08 08:30 | Patient Discharge Instructions ---
Discharge Instructions General Discharge Information You were seen/treated for: Vitamin B12 deficiency Watch for these problems: Fever, chest pain, shortness of breath Special Instructions: Please take all medications as directed. Please follow-up with primary care. Diet Continue normal diet: Yes Recommended Diet: Regular Activity Full Activity/No Limits: Yes Acute Coronary Syndrome Inclusion Criteria At DC or during hospital stay patient has or had the following: ACS DIAGNOSIS No Discharge Core Measures Meds if any: Prescribed or Continued at Discharge Meds if any: NOT Prescribed or Continued at Discharge Congestive Heart Failure Inclusion Criteria At DC or during hospital stay patient has or had the following: CHF DIAGNOSIS No Discharge Core Measures Meds if any: Prescribed or Continued at Discharge Meds if any: NOT Prescribed or Continued at Discharge Cerebrovascular accident Inclusion Criteria At DC or during hospital stay patient has or had the following: CVA/TIA Diagnosis No Discharge Core Measures Meds if any: Prescribed or Continued at Discharge Meds if any: NOT Prescribed or Continued at Discharge Venous thromboembolism Inclusion Criteria VTE Diagnosis No VTE Type NONE VTE Confirmed by (Test) NONE Discharge Core Measures - Per Current guidelines, there needs to be overlap - treatment for the first 5 days of Warfarin therapy. - If discharged on Warfarin prior to 5 days of - overlap therapy, the patient will need to be - assessed for post discharge needs including - *Post discharge parental anticoagulation - *Warfarin and/or parental anticoagulation education - *Follow up date to check INR post discharge At least 5 days overlap therapy as Inpatient No Meds if any: Prescribed or Continued at Discharge Note: Overlap Therapy is Warfarin and Anticoagulant Meds if any: NOT Prescribed or Continued at Discharge
[2017-10-08] MEDS ORDERED: VITAMIN D31000 UNI2 PO (08:41)
[2017-10-08 13:31] VITALS: BP 136/82
== END 2017-10-08 14:54 | DRG 641 ==
LOC: ERH 18:10 → ERHI 21:12 → ERH 21:28 → ERHI 10-06 10:40 → ENTRNSPT 10-06 14:11 → EDTRNSPT 10-06 14:36 → EDTRNSPTSTS 10-06 14:36 → EDTRNSPT 10-06 14:50 → 2NA 10-06 14:51 → CMPTRNSPT 10-06 15:00 → ENPENDDIS 10-08 11:35 → 2NA 10-08 14:54
PROVIDERS: Internal Medicine; Physician Assistant Medical
DX: E55.9 Vitamin D deficiency, unspecified (principal); N17.9 Acute kidney failure, unspecified; G91.2 (Idiopathic) normal pressure hydrocephalus; D64.9 Anemia, unspecified; E11.9 Type 2 diabetes mellitus without complications; I10 Essential (primary) hypertension; E78.5 Hyperlipidemia, unspecified; M19.012 Primary osteoarthritis, left shoulder; Z91.14 Patient's other noncompliance with medication regimen
CPT/HCPCS: 2NASP; ERO; 36592; 71045; 73030-LT; 73080-LT; 73110-LT; 81001; 82436; 87040; 93005; 93010; 97110-GO; 97116-GO; 97161-GP; 97165-GO; 97530-GO; J0131; J1650; J3420; J7120